=== PATIENT | male | born 2000 ===

== ENCOUNTER 2020-01-17 11:00 | Outpatient (RCR) | payer BC, SELFPAY ==
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
--- NOTE | 2019-12-06 13:19 | PCPTNOTE ---
Patient called & cancelled scheduled appointment this date due to no authorization obtained at this time.
--- NOTE | 2019-12-08 16:16 | PCPTNOTE ---
Patient did not show up for scheduled appointment this date. Reminder phone call for patient informing authorization has been obtained and visits are approved.
--- NOTE | 2019-12-20 11:53 | PCPTNOTE ---
Patient did not show up for scheduled appointment this date.
--- NOTE | 2019-12-24 11:25 | PCPTNOTE ---
Patient did not show up for scheduled appointment this date, called and confirmed appointment for Friday.
--- NOTE | 2019-12-29 11:06 | PCPTNOTE ---
Addendum entered by Mayra Ansari, PT 12/29/19 11:11: Called and spoke with pt due to his repeated no show. Reviewed our no show/cancel policy. Ed pt he has exceeded the allowed number of no show and will be DC. Instructed him to obtain a new MD order to return to therapy. He verbalized understanding. Original Note: Patient did not show up for scheduled appointment this date. This was his scheduled re-eval.
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
--- NOTE | 2020-01-12 11:29 | PCPTNOTE ---
Patient did not show up for scheduled appointment this date.
--- NOTE | 2020-01-17 11:38 | PTOPEVAL ---
PHYSICAL THERAPY DISCHARGE 01-17-2020 Roberto has received 9 PT sessions, from November 30 to today. He did not show for 1 appointment this last reevaluation time frame and did not show for a total of 4 for the entire time frame. He has forgotten his leg braces for 2 of the appointments. Compared to the last reevaluation: functional strength of R and L: sitting and standing hip flexion and sitting knee extension have increased slightly; has trace L ankle inversion motion; time that he is able to stand has increased. Roberto has a home exercise program for LE strengthening and a walker at home for standing with his family assist. At this time, Roberto will be discharged from PT services. He does not require the skilled services of PT for his leg strengthening exercises in the bed and sitting positions and standing with the walker to gain strength. He is to continue to work on these at home. When he gains LE strength and is ready to begin gait training, he can return to therapy with a new script for PT treatment. Thank you for referring Roberto Simmons to [facility]. Please review, sign, date and return this discharge JOSEMANUEL. I agree with and certify that the following plan of care is medically necessary. Referring Physician Date Attending Provider: Everton Dawson NP Document 01/17/20 10:58 BEN (Rec: 01/17/20 11:31 BEN [email or web address]) Subjective Information Roberto reports: has a walker at home,forgot his leg braces today Query Text:As Reported By Patient/ Family Pain Assessment Timing of Pain Assessment Timing of Pain Assessment Assessment Self Report Self Report Pain Level 0 Pain Score Pain Score 0: Self Report Lower Extremity Range of Motion General Lower Extremity Range of Motion Gross Lower Extremity Range of Motion B ankle passive stretch DF to Comments 0'; B prone hip extension to 0'; Lower Extremity Muscle Strength Testing General Lower Extremity Strength Gross Lower Extremity Strength prone hip ext- unable to lift leg off mat; knee flexion- contraction of hamstring but not able to lift leg off mat; side lying hip abduction- unable to lift L or R LE; clamshell/hip ER- R to neutral hip x 10/ L to (-5' from neutral hip) x 11 reps; supine: SLR R 10 / L 10 reps; sitting with heel on ground: slight L ankle inversion is only ankle motion R ankle: no active motion; sitting: knee extension R to 0 ' x 21/ L x 22 reps; standing with walker: pt did not bring LE braces today: static stand 1 min & 14
== END 2020-01-17 13:20 | disposition home or self-care (01) ==
LOC: ANHPT 11:00
PROVIDERS: PCP Registered Nurse; Visit Provider Registered Nurse
DX: M25.512 Pain in left shoulder (principal); M62.81 Muscle weakness (generalized); T14.8XXS Other injury of unspecified body region, sequela; Y24.9XXS Unspecified firearm discharge, undetermined intent, sequela
CPT/HCPCS: 97110; 97112; 97161